=== PATIENT | male | born 1935 | race Two or more races ===

== ENCOUNTER → 2019-04-15 | Outpatient (CLI) | payer OTHER | END | disposition home or self-care (01) | LOC: TOM 07:28 | DX: K59.09 Other constipation (principal); K44.9 Diaphragmatic hernia without obstruction or gangrene; K57.30 Diverticulosis of large intestine without perforation or abscess without bleeding; K64.0 First degree hemorrhoids; K29.70 Gastritis, unspecified, without bleeding; K31.89 Other diseases of stomach and duodenum; K20.8 Other esophagitis; Z85.46 Personal history of malignant neoplasm of prostate ==